=== PATIENT | female | born 1995 | race Caucasian/White ===

== ENCOUNTER 2018-05-15 11:14 | Emergency (ER) | payer OTHER ==
[~2018-05-15] VITALS: Ht 162.6 cm; Wt 70.0 kg
[~2018-05-15 11:14] MED LIST: BACTRIM,SEPT1 TABLET PO; CONCERTA18 MG; LORTAB 5-325 M1 EACH PO; METHYLPHENIDATE36 MG PO; MOTRIN600 MG PO; PYRIDIUM100 MG PO; TRI-ESTARYLLA1 EACH PO
[2018-05-15 12:31] LABS: HEMATOCRIT 36.7 % (36.0-46.0); HEMOGLOBIN 12.5 G/DL (11.9-15.5); MCH 28.5 PG (29.0-34.0); MCHC 34.1 G/DL (30.0-36.0); MCV 83.8 FL (83-99); PLATELET COUNT 301 K/uL (156-360); RBC DIS.WIDTH-CV 13.9 % (11.8-14.6); RBC DIS.WIDTH-SD 42.7 % (39-53); RED BLOOD COUNT 4.38 M/uL (3.80-5.20); WHITE BLOOD COUNT 6.3 K/uL (4.1-10.2)
[2018-05-15 12:39] LABS: ALBUMIN 3.9 g/dL (3.2-4.8)
[2018-05-15 12:40] LABS: CHLORIDE 106 mEq/L (99-109); POTASSIUM 4.1 mEq/L (3.7-5.4); SODIUM 135 mEq/L (136-147)
[2018-05-15 12:42] LABS: GLUCOSE 97 mg/dL (70-99); TOTAL PROTEIN 6.8 g/dL (6.4-8.3)
[2018-05-15 12:44] LABS: TOTAL BILIRUBIN 0.4 mg/dL (0.0-1.0)
[2018-05-15 12:45] LABS: ALKALINE PHOSPHATASE 57 IU/L (3-129)
[2018-05-15 12:46] LABS: CREATININE 0.6 mg/dL (0.6-1.3); GFR ESTIMATE (CALCULATED) > 59 mL/min/
[2018-05-15 12:47] LABS: AST (GOT) 12 IU/L (2-34); UREA NITROGEN (BUN) 6 mg/dL (9-23)
[2018-05-15 12:49] LABS: ALT (GPT) 9 IU/L (3-49)
[2018-05-15 13:21] LABS: APPEARANCE CLEAR ((CLEAR)); BILIRUBIN NEGATIVE; BLOOD NEGATIVE; COLOR COLORLESS ((YELLOW)); GLUCOSE (STRIP) NEGATIVE; KETONES NEGATIVE; LEUKOCYTES NEGATIVE; NITRITE NEGATIVE; PROTEIN (STRIP) NEGATIVE; SPECIFIC GRAVITY 1.004 (1.000-1.030); UCUL ADDED? NO; UROBILINOGEN 0.2 MG/DL (0.2-1.0)
[2018-05-15 13:30] LABS: LIPASE 7 U/L (1.0-51.0)
[2018-05-15] MEDS ORDERED: ZOFRAN ODT4 MG PO (13:35)
[2018-05-15 14:19] VITALS: BP 127/80
== END 2018-05-15 14:21 | disposition home or self-care (01) ==
LOC: EME 11:14
PROVIDERS: Physician Assistant
DX: O21.9 Vomiting of pregnancy, unspecified (principal); Z3A.13 13 weeks gestation of pregnancy
CPT/HCPCS: 80053; 81003; 83690; 85027; 99281; 99283